=== PATIENT | female | born 1965 | race American Indian/Alaskan Native ===

== ENCOUNTER 2018-11-02 21:18 | Emergency (ER) | payer MEDICAID, MEDICARE, OTHER ==
--- NOTE | 2018-11-02 22:13 | Event Note ---
ED Screening Note Date of service: 11/02/18 Time: 22:12 ED Screening Note: 53 y o female with hx of substance and alcohol abuse presents for medical clearance to return to [facility] This initial assessment/diagnostic orders/clinical plan/treatment(s) is/are subject to change based on patients health status, clinical progression and re- assessment by fellow clinical providers in the ED. Further treatment and workup at subsequent clinical providers discretion. Patient/guardian urged not to elope from the ED as their condition may be serious if not clinically assessed and managed. Initial orders include: labs MAin ed eval
[2018-11-02 23:10] LABS: Hematocrit 43.7 % (30.3-42.9); Hemoglobin 14.1 gm/dl (10.1-14.3); Mean Corpuscular HGB Conc 32 % (30-34); Mean Corpuscular Volume 89 fl (79-97); Platelet Count 240 K/mm3 (140-440); Red Blood Count 4.91 M/mm3 (3.65-5.03); Red Cell Distribution Width 13.4 % (13.2-15.2)
--- NOTE | 2018-11-02 23:42 | Emergency Department Report ---
<MARILYNLEVYJAKE FantaNoelle - Last Filed: 11/02/18 23:33> ED Psych HPI - General Chief Complaint: Psych Stated Complaint: MEDICAL CLEARANCE Time Seen by Provider: 11/02/18 22:12 Source: patient Mode of arrival: Ambulatory - History of Present Illness Initial Comments: Patient is 53 years old female with history of schizophrenia, chronic alcoholism and drug abuse. Patient resented to the ER asking for medical clearance for alcohol and drug rehabilitation. Patient patient also stated that she is hearing voices and trying to kill her. Patient denied any suicidal or homicidal ideation. Last drink was yesterday. No clinical evidence of on alcohol withdra wal so far. Associated Psychiatric Symptoms: racing thoughts Associated Symptoms: denies other symptoms - Related Data Home Medications Medication Instructions Recorded Confirmed Last Taken Dapsone 100 mg PO DAILY 11/03/18 11/03/18 Unknown Darunavir/Cobicistat (Nf) 1 each PO DAILY 11/03/18 11/03/18 Unknown [Prezcobix 800 mg-150 mg (Nf)] Divalproex ER [DepaKOTE ER] 2 tab PO HS 11/03/18 11/03/18 Unknown Emtricitabine/Tenofov Alafenam 1 tab PO DAILY 11/03/18 11/03/18 Unknown [Descovy 200-25 mg (Nf)] metroNIDAZOLE [Flagyl TAB] 1 tab PO BID 11/03/18 11/03/18 Unknown traZODone [Desyrel] 100 mg PO QHS 11/03/18 11/03/18 Unknown Allergies Allergy/AdvReac Type Severity Reaction Status Date / Time cephalexin monohydrate Allergy Angioedema Verified 01/30/16 17:41 [From Keflex] ED Review of Systems Comment: All other systems reviewed and negative Constitutional: denies: chills, fever Respiratory: denies: cough, shortness of breath, SOB with exertion Gastrointestinal: denies: abdominal pain, nausea, vomiting Musculoskeletal: denies: back pain ED Past Medical Hx - Past Medical History Previous Medical History?: Yes Hx CVA: Yes Hx Psychiatric Treatment: Yes (BIPOLAR / SCHIZOPHRENIA / DEPRESSION) - Surgical History Hx Breast Surgery: Yes (LUMP REMOVED LEFT BREAST) Additional Surgical History: TUBAL LIGATION - Social History Smoking Status: Current Every Day Smoker Substance Use Type: Alcohol, Cocaine, Marijuana - Medications Home Medications: Home Medications Medication Instructions Recorded Confirmed Last Taken Type Dapsone 100 mg PO DAILY 11/03/18 11/03/18 Unknown History Darunavir/Cobicistat (Nf) 1 each PO DAILY 11/03/18 11/03/18 Unknown History [Prezcobix 800 mg-150 mg (Nf)] Divalproex ER [DepaKOTE ER] 2 tab PO HS 11/03/18 11/03/18 Unknown History Emtricitabine/Tenofov Alafenam 1 tab PO DAILY 11/03/18 11/03/18 Unknown History [Descovy 200-25 mg (Nf)] metroNIDAZOLE [Flagyl TAB] 1 tab PO BID 11/03/18 11/03/18 Unknown History traZODone [Desyrel] 100 mg PO QHS 11/03/18 11/03/18 Unknown History ED Physical Exam - General Limitations: No Limitations General appearance: alert, in no apparent distress - Head Head exam: Present: atraumatic, normocephalic, normal inspection - ENT ENT exam: Present: normal exam, normal orophraynx, mucous membranes moist - Neck Neck exam: Present: normal inspection, full ROM. Absent: tenderness, meningismus, lymphadenopathy, thyromegaly - Respiratory Respiratory exam: Present: normal lung sounds bilaterally - Cardiovascular Cardiovascular Exam: Present: regular rate, normal rhythm, normal heart sounds - GI/Abdominal GI/Abdominal exam: Present: soft, normal bowel sounds. Absent: distended, tenderness, guarding, rebound, rigid, mass, bruit, pulsatile mass - Extremities Exam Extremities exam: Present: normal inspection, full ROM, normal capillary refill. Absent: tenderness, pedal edema, calf tenderness - Back Exam Back exam: Present: normal inspection, full ROM. Absent: CVA tenderness (R), CVA tenderness (L), muscle spasm, paraspinal tenderness, vertebral tenderness - Neurological Exam Neurological exam: Present: alert, oriented X3, CN II-XII intact, normal gait, reflexes normal - Psychiatric Psychiatric exam: Present: normal mood. Absent: depressed, agitated, manic, homicidal ideation, suicidal ideation - Skin Skin exam: Present: warm, intact, normal color ED Medical Decision Making - Lab Data Result diagrams: 11/02/18 22:32 ED Disposition Clinical Impression: Medical clearance for psychiatric admission, Schizophrenia, Auditory hallucinations, Polysubstance abuse Disposition: DC/TX-[facility] HOSP/PSY UNIT Condition: Stable Referrals: PRIMARY CARE, [Primary Care Provider] - 3-5 Days <SAAD REDDY S - Last Filed: 11/03/18 07:30> ED Review of Systems ROS: Stated complaint: MEDICAL CLEARANCE Other details as noted in HPI ED Course Vital Signs 11/02/18 11/02/18 11/03/18 22:10 23:39 05:00 Temperature 98 F 97.8 F 98.5 F Pulse Rate 81 72 72 Respiratory 18 16 16 Rate Blood Pressure 135/90 Blood Pressure 134/72 120/80 [Left] O2 Sat by Pulse 97 100 100 Oximetry ED Medical Decision Making - Lab Data Result diagrams: 11/02/18 22:32 11/02/18 22:32 - Medical Decision Making This patient was admitted with a complaint of some recent substance abuse, history of schizophrenia, and some auditory hallucinations. The chart was brought to me after the patient was accepted for placement to [facility] pending medical clearance. All the labs are back and are unremarkable except for positive UDS for cocaine and marijuana. Blood alcohol level is negative. Patient's vital signs are stable throughout her ED course including being afebrile. Patient is medically cleared for psychiatric placement. Critical Care Time: No Critical care attestation.: If time is entered above; I have spent that time in minutes in the direct care of this critically ill patient, excluding procedure time. ED Disposition Is pt being admited?: No
[2018-11-02 23:44] LABS: BUN/Creatinine Ratio 14; Blood Urea Nitrogen 10 mg/dL (7-17); Calcium 9.1 mg/dL (8.4-10.2); Hemolysis Index 10
[2018-11-02 23:48] LABS: Bacteria,Urine 1+ /HPF (Negative); Bilirubin,Urine NEG (Negative); Blood,Urine NEG (Negative); Color,Urine Yellow (Yellow); Mucus,Urine FEW /HPF; Protein,Urine <15 mg/dL mg/dL (Negative); WBC,Urine < 1.0 /HPF (0.0-6.0)
[2018-11-02 23:49] LABS: Amphetamine Screen,Urine PRESUMPTIVE NEGATIVE; Benzodiazepines Screen,Urine PRESUMPTIVE NEGATIVE; Methadone Screen,Urine PRESUMPTIVE NEGATIVE; Opiate Screen,Urine PRESUMPTIVE NEGATIVE
[2018-11-03 00:09] LABS: Cannabinoid Screen,Urine PRESUMPTIVE POSITIVE; Cocaine Screen,Urine PRESUMPTIVE POSITIVE
[2018-11-03 01:26] LABS: Total Cells Counted 100
[2018-11-03 01:27] LABS: Basophils % (Manual) 0 % (0.0-1.8); Eosinophils % (Manual) 0 % (0.0-4.3); RBC Morphology Normal
[2018-11-03 01:28] LABS: Platelet Estimate Consistent w Auto
[2018-11-03 10:37] VITALS: BP 144/88
== END 2018-11-03 10:52 ==
LOC: ED 21:18 → EEVIPCON 21:18 → ED 11-03 10:52
DX: F20.9 Schizophrenia, unspecified (principal); F31.9 Bipolar disorder, unspecified; F12.10 Cannabis abuse, uncomplicated; F14.10 Cocaine abuse, uncomplicated; F19.10 Other psychoactive substance abuse, uncomplicated; Z86.73 Personal history of transient ischemic attack (TIA), and cerebral infarction without residual deficits; Z98.51 Tubal ligation status; Z79.899 Other long term (current) drug therapy; Z98.890 Other specified postprocedural states; Z88.1 Allergy status to other antibiotic agents
CPT/HCPCS: 36415; 80048; 80307; 80320; 81001; 82962; 85007; 85025; G0480

== ENCOUNTER 2018-12-03 06:58 | Emergency (ER) | payer MEDICARE ==
--- NOTE | 2018-12-03 08:02 | XRay Report ---
CHEST 2 VIEWS 0748 INDICATION / CLINICAL INFORMATION: COUGH HIV COMPARISON: 03/20/2016 FINDINGS: SUPPORT DEVICES: None. HEART / MEDIASTINUM: No significant abnormality. LUNGS / PLEURA: Lung bases are not fully included. No obvious areas of consolidation are seen. No pne umothorax. ADDITIONAL FINDINGS: No significant additional findings. IMPRESSION: No significant acute abnormality Signer Name: Benedicto Calderon MD Signed: 12/03/2018 7:57 AM Workstation Name: [id number]
--- NOTE | 2018-12-03 08:04 | Emergency Department Report ---
ED General Adult HPI - General Chief complaint: Upper Respiratory Infection Stated complaint: COUGH,SOB,FAINTING Time Seen by Provider: 12/03/18 07:28 Source: patient Mode of arrival: Ambulatory Limitations: No Limitations - History of Present Illness Initial comments: This is a 53-year-old female in an outpatient residential program. She has HIV. She has history of schizophrenia. She is compliant with her medication. She states that "I do not want to go back to doing drugs". She is here because she's had a cough which has been largely nonproductive. She also states she is urinating frequently. She's had prior laboratory workup at this facility and no history of diabetes. -: Gradual, days(s) Severity scale (0 -10): 0 Consistency: intermittent (cough) Worsens with: none Associated Symptoms: denies other symptoms (states sore throat) Treatments Prior to Arrival: none - Related Data Home Medications Medication Instructions Recorded Confirmed Last Taken Dapsone 100 mg PO DAILY 11/03/18 11/03/18 Unknown Darunavir/Cobicistat (Nf) 1 each PO DAILY 11/03/18 11/03/18 Unknown [Prezcobix 800 mg-150 mg (Nf)] Divalproex ER [DepaKOTE ER] 2 tab PO HS 11/03/18 11/03/18 Unknown Emtricitabine/Tenofov Alafenam 1 tab PO DAILY 11/03/18 11/03/18 Unknown [Descovy 200-25 mg (Nf)] metroNIDAZOLE [Flagyl TAB] 1 tab PO BID 11/03/18 11/03/18 Unknown traZODone [Desyrel] 100 mg PO QHS 11/03/18 11/03/18 Unknown Previous Rx's Medication Instructions Recorded Last Taken Type Sulfamethoxazole/Trimethoprim 1 each PO BID #20 tablet 12/03/18 Unknown Rx [Bactrim 400-80 mg Tablet] Allergies Allergy/AdvReac Type Severity Reaction Status Date / Time cephalexin monohydrate Allergy Angioedema Verified 01/30/16 17:41 [From Keflex] ED Review of Systems ROS: Stated complaint: COUGH,SOB,FAINTING Other details as noted in HPI Constitutional: denies: chills, fever Eyes: denies: eye pain, eye discharge, vision change ENT: denies: ear pain, throat pain Respiratory: cough. denies: shortness of breath, wheezing Cardiovascular: denies: chest pain, palpitations Endocrine: no symptoms reported Gastrointestinal: denies: abdominal pain, nausea, diarrhea Genitourinary: denies: urgency, dysuria, discharge Musculoskeletal: denies: back pain, joint swelling, arthralgia Skin: denies: rash, lesions Neurological: denies: headache, weakness, paresthesias Psychiatric: denies: anxiety, depression Hematological/Lymphatic: denies: easy bleeding, easy bruising ED Past Medical Hx - Past Medical History Previous Medical History?: Yes Hx CVA: Yes Hx Psychiatric Treatment: Yes (BIPOLAR / SCHIZOPHRENIA / DEPRESSION) - Surgical History Past Surgical History?: Yes Hx Breast Surgery: Yes (LUMP REMOVED LEFT BREAST) Additional Surgical History: TUBAL LIGATION - Social History Smoking Status: Current Every Day Smoker Substance Use Type: Alcohol, Cocaine, Marijuana, Prescribed - Medications Home Medications: Home Medications Medication Instructions Recorded Confirmed Last Taken Type Dapsone 100 mg PO DAILY 11/03/18 11/03/18 Unknown History Darunavir/Cobicistat (Nf) 1 each PO DAILY 11/03/18 11/03/18 Unknown History [Prezcobix 800 mg-150 mg (Nf)] Divalproex ER [DepaKOTE ER] 2 tab PO HS 11/03/18 11/03/18 Unknown History Emtricitabine/Tenofov Alafenam 1 tab PO DAILY 11/03/18 11/03/18 Unknown History [Descovy 200-25 mg (Nf)] metroNIDAZOLE [Flagyl TAB] 1 tab PO BID 11/03/18 11/03/18 Unknown History traZODone [Desyrel] 100 mg PO QHS 11/03/18 11/03/18 Unknown History Sulfamethoxazole/Trimethoprim 1 each PO BID #20 tablet 12/03/18 Unknown Rx [Bactrim 400-80 mg Tablet] ED Physical Exam - General Limitations: No Limitations General appearance: alert, in no apparent distress - Head Head exam: Present: atraumatic, normocephalic - Eye Eye exam: Present: normal appearance - ENT ENT exam: Present: mucous membranes moist - Neck Neck exam: Present: normal inspection - Respiratory Respiratory exam: Present: normal lung sounds bilaterally. Absent: respiratory distress - Cardiovascular Cardiovascular Exam: Present: regular rate, normal rhythm. Absent: systolic murmur, diastolic murmur, rubs, gallop - GI/Abdominal GI/Abdominal exam: Present: soft, normal bowel sounds. Absent: distended, tenderness, guarding, rebound, rigid - Extremities Exam Extremities exam: Present: normal inspection - Back Exam Back exam: Present: normal inspection - Neurological Exam Neurological exam: Present: alert, oriented X3, CN II-XII intact. Absent: motor sensory deficit - Psychiatric Psychiatric exam: Present: normal mood, flat affect - Skin Skin exam: Present: warm, dry, intact, normal color. Absent: rash ED Course Vital Signs 12/03/18 12/03/18 07:03 07:35 Temperature 97.7 F 97.8 F Pulse Rate 93 H 89 Respiratory 18 14 Rate Blood Pressure 129/84 Blood Pressure 106/74 [Left] O2 Sat by Pulse 96 94 Oximetry - Reevaluation(s) Reevaluation #1: Patient is appropriate for outpatient management. She was placed on Bactrim at this time. Urine culture will be sent. An Accu-Chek will be done. 12/03/18 08:02 ED Medical Decision Making - Radiology Data Radiology results: image reviewed (no acute process seen) Critical care attestation.: If time is entered above; I have spent that time in minutes in the direct care of this critically ill patient, excluding procedure time. ED Disposition Clinical Impression: HIV positive Acute bronchitis Qualifiers: Bronchitis organism: unspecified organism Qualified Code(s): J20.9 - Acute bronchitis, unspecified Schizophrenia Qualifiers: Schizophrenia type: unspecified Qualified Code(s): F20.9 - Schizophrenia, unspecified Disposition: DC- TO HOME OR SELFCARE Is pt being admited?: Yes Does the pt Need Aspirin: Yes Condition: Stable Instructions: Acute Bronchitis (ED) Additional Instructions: Follow up with family physician, infectious disease or referral clinic. Your urine culture result will be ready in 2-3 days. Return any acute change or worsening symptoms, particularly if you have a fever or R short of breath. Prescriptions: Sulfamethoxazole/Trimethoprim [Bactrim 400-80 mg Tablet] 1 each PO BID #20 tablet Referrals: [facility] [Provider Group] - 2-3 Days Time of Disposition: 08:04
[2018-12-03 08:33] VITALS: BP 116/81
[2018-12-03 08:40] LABS: Bacteria,Urine 2+ /HPF (Negative); Bilirubin,Urine NEG (Negative); Blood,Urine NEG (Negative); Color,Urine Yellow (Yellow); Protein,Urine <15 mg/dL mg/dL (Negative); Urobilinogen,Urine < 2.0 mg/dL (<2.0)
== END 2018-12-03 08:15 | disposition home or self-care (01) ==
LOC: ED 06:58
DX: J20.9 Acute bronchitis, unspecified (principal); F25.0 Schizoaffective disorder, bipolar type; F12.10 Cannabis abuse, uncomplicated; F32.9 Major depressive disorder, single episode, unspecified; Z21 Asymptomatic human immunodeficiency virus [HIV] infection status; Z98.890 Other specified postprocedural states; Z98.51 Tubal ligation status; Z86.73 Personal history of transient ischemic attack (TIA), and cerebral infarction without residual deficits; Z79.899 Other long term (current) drug therapy; Z88.8 Allergy status to other drugs, medicaments and biological substances
CPT/HCPCS: 71046; 81001; 82962; 87086

== ENCOUNTER 2019-03-21 09:46 | Outpatient (CLI) | payer MEDICARE ==
[2019-03-21 10:11] LABS: Hematocrit 38.8 % (30.3-42.9); Hemoglobin 13.1 gm/dl (10.1-14.3); Mean Corpuscular HGB Conc 34 % (30-34); Mean Corpuscular Volume 89 fl (79-97); Platelet Count 240 K/mm3 (140-440); Red Blood Count 4.37 M/mm3 (3.65-5.03); Red Cell Distribution Width 15.4 % (13.2-15.2)
== END 2019-03-21 09:47 | disposition home or self-care (01) ==
LOC: LAB 09:46
PROVIDERS: ATTEND Psychiatry & Neurology Psychiatry
DX: F25.0 Schizoaffective disorder, bipolar type (principal)
CPT/HCPCS: 36415; 80164; 85027